=== PATIENT | male | born 1960 | race Caucasian/White ===

== ENCOUNTER 2016-11-04 22:20 | Emergency (ER) ==
[2016-11-04 22:41] LABS: URINE SOURCE VOIDED
[2016-11-04] MEDS ORDERED: MORPHINE IV ONE (22:42)
[2016-11-04] MEDS ORDERED: ZOFRAN IV ONE (22:42)
--- NOTE | 2016-11-04 22:57 | PROVIDER DOCUMENTATION ---
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 States it comes and goes, but is sharp raidating to the RLQ. Denies nausea, vomiting or diarrhea. States he tried dulcolax which actually made the pain worse. States an episode of dysuria just now with darkening of the urine, but no gross hematuria. Review of Systems - Adult - REVIEW OF SYSTEMS - ADULT Constitutional: reports: no symptoms reported. denies: chills, fever, [place]ique Eyes: reports: no symptoms reported. denies: blurred vision, double vision, eye pain Ears, Nose, Mouth & Throat: reports: no symptoms reported. denies: ear pain, nose pain, throat pain Cardiovascular: reports: no symptoms reported. denies: chest pain, palpitations Respiratory: reports: no symptoms reported. denies: cough, shortness of breath Gastrointestinal: reports: no symptoms reported. denies: abdominal pain, diarrhea, nausea, vomiting Genitourinary: reports: see HPI, dysuria, flank pain. denies: discharge, frequency, hematuria, incontinence, urgency Musculoskeletal: reports: no symptoms reported. denies: muscle aches Integumentary: reports: no symptoms reported. denies: rash Neurological: reports: no symptoms reported Psychiatric: reports: no symptoms reported Endocrine: reports: no symptoms reported Hematologic/Lymphatic: reports: no symptoms reported Allergic/Immunologic: reports: no symptoms reported All Other Systems: Reviewed and Negative Past History - Adult - PAST MEDICAL HISTORY-ADULT Review of Records: reports: Old Records Reviewed, Nursing Assessment Review, Medications Reviewed, Social history reviewed & non-contributory. Major Childhood Illnesses: reports: denies history Cardiovascular: reports: denies history Respiratory: reports: denies history Gastrointestinal: reports: denies history Genitourinary: reports: denies history Musculoskeletal: reports: denies history Neurological: reports: denies history Endocrine/Immune: reports: denies history Other Conditions: reports: denies history - PRIOR SURGERIES/PROCEDURES Surgical/Procedure History: reports: reviewed, not pertinent - IMMUNIZATION STATUS Childhood Immunizations: See Nurse Assessment Flu Vaccine: See Nurse Assessment - FAMILY HISTORY Family History: reviewed, not pertinent - SOCIAL HISTORY Smoking: denies Substance Use: none/never Alcohol Use Frequency: never Physical Exam-General - PHYSICAL EXAM-ADULT Initial Vital Signs Reviewed: Yes - CONSTITUTIONAL General Appearance: appears well, alert, no apparent distress - EYES Eyes: PERRL/EOMI, pink conjunctivae - HEAD, EARS, NOSE, MOUTH & THROAT HENMT: normocephalic/atraumatic, moist mucous membranes - NECK Neck: non-tender, full range of motion, supple, normal inspection. negative: lymphadenopathy - RESPIRATORY Respiratory: chest non-tender, lungs clear, normal breath sounds, no pleuratic chest pain, no respiratory distress, no accessory muscle use. negative: respiratory distress, decreased breath sounds, accessory muscle use, crackles, rales, rhonchi, wheezing - CARDIOVASCULAR Cardiovascular: normal peripheral pulses, regular rate, rhythm, no edema - GASTROINTESTINAL (ABDOMEN) Abdominal Exam: normal bowel sounds, non tender, soft, no organomegaly, no pulsatile mass. negative: abdominal bruit, abnormal bowel sounds, distended, guarding, rigid, rebound, tenderness - LYMPHATIC Lymphatic: no adenopathy - MUSCULOSKELETAL Back Exam: normal inspection, no CVA tenderness. negative: CVA tenderness Extremity: normal gait - SKIN Integumentary: normal color, normal turgor, warm/dry - NEUROLOGIC Neurologic: grossly normal, no motor/sensory deficits - PSYCHIATRIC Psych/Mental Status: normal mood/affect, normal thought content, normal thought process, oriented x 3 Progress - PLAN OF CARE/RESULTS Progress/Plan/Lab Results: Vital Signs Temp Pulse Resp BP Pulse Ox 11/04/16 22:29 98.2 F 67 18 136/74 100 celecoxib [From Celebrex] Allergy (Verified 11/04/16 22:33) HIVES NSAIDS (Non-Steroidal Anti-Inflamma Allergy (Verified 11/04/16 22:34) HIVES No Home Medications 11/04/16 Laboratory 11/04/16 22:34 Urine Source VOIDED Urine Color YELLOW Urine Clarity CLEAR Urine pH 6.5 Ur Specific [place] 1.015 Urine Protein TRACE A Urine Ketones NEGATIVE Urine Blood NEGATIVE Urine Nitrite NEGATIVE Urine Bilirubin NEGATIVE Urine Urobilinogen NORMAL Urine WBC NEGATIVE Urine Glucose NEGATIVE Orders Category Date Time Status Saline Loc NOW Care 11/04/16 22:42 Active RENAL STONE SEARCH [CT] Stat Exams 11/04/16 22:[address] W/POSS RFLX CULT [URINALYSIS] Stat Lab 11/04/16 22:34 Results Morphine Med 11/04/16 22:42 Discontinued 4 mg IV NOW ONE Ondansetron [Zofran] Med 11/04/16 22:42 Discontinued 4 mg IV NOW ONE - CT/MRI 1 CT Study: Renal Stone Impression: Abnormal (mild right hydronephrosis secondary to obstructing calculus in the right proximal ureter. There is right nephrolithiasis. No other acute abnormality. stone 7 mm x 5 mm per prelim radiology group.) Departure - Departure Time of Disposition Order: 23:15 DIAGNOSIS: Ureteral stone Disposition: HOME 01 Certified Medical Emergency: Emergent Condition: Stable Additional Instructions: Please follow up with Dr. Moise, urology ED Follow Up Instructions: You have been treated by a care provider in the Emergency Department. These instructions are being provided to you so you can have an understanding of how to care for yourself upon discharge. Upon discharge from the Emergency Department, you are responsible for making arrangements for follow-up care by a physician of your choice. Take all prescribed medications as directed. Return to the Emergency Department immediately for any new or worsening symptoms. You may call the Physician Referral phone number at [phone] to obtain a list of Physicians who are taking new patients. Prescriptions: Tamsulosin [Flomax] 0.4 mg PO DAILY #20 capsule Hydrocodone/APAP 7.5 mg/325 mg [[place]-7.5] 1 each PO Q6H PRN PRN #20 tablet PRN Reason: Pain Ondansetron Odt [Zofran 8Mg Odt] 8 mg PO Q8H PRN PRN #20 tablet PRN Reason: Nausea Referrals: None,PCP [Primary Care Provider] - Attestation - Physician/ Mid-level Attestation Patient care was provided by Mid-level provider (BUSINESS QUALITY ASSURANCE ANALYST/PA):: Yes Mid-level provider:: Shraddha Francois Mid-level documentation review:: The Mid-level provider documentation, treatment plan and medical decision making was reviewed by the physician who agrees with all treatment and medical decision making by the MLP.
[2016-11-04 23:06] LABS: BILIRUBIN URINE NEGATIVE (NEGATIVE); BLOOD URINE NEGATIVE (NEGATIVE); CLARITY CLEAR (CLEAR); COLOR YELLOW; GLUCOSE URINE NEGATIVE (NEGATIVE); LEUKOCYTES URINE NEGATIVE (NEGATIVE); NITRITE URINE NEGATIVE (NEGATIVE); PH URINE 6.5; PROTEIN URINE TRACE mg/dL (NEGATIVE); SP GRAVITY URINE 1.015; UROBILINOGEN URINE NORMAL
[2016-11-04 23:18] LABS: URINE CAST GRANULAR PRESENT /LPF; URINE CULTURE PL NEEDED? YES; URINE EPITHELIAL CELLS <10 /HPF (<10); URINE WBC <10 /HPF (<10)
[2016-11-05] MEDS ORDERED: NORCO-10 PO ONE (00:01)
[2016-11-05] MEDS ORDERED: MORPHINE IM ONE (00:07)
[2016-11-05] MEDS ORDERED: MORPHINE ONE (00:08)
[2016-11-05] MEDS ORDERED: DILAUDID IM ONE (00:48)
[2016-11-05] MEDS ORDERED: DILAUDID ONE (00:50)
[2016-11-05 01:27] VITALS: BP 116/079
--- NOTE | 2016-11-05 10:28 | Diag Imaging Result Document ---
PROCEDURE NAME: RENAL STONE SEARCH - 11/04/2016 CT ABDOMEN AND PELVIS WITHOUT CONTRAST: COMPARISON: None available. FINDINGS: There is an obstructing stone in the proximal right ureter just distal to the right UPJ measuring approximately 8.4 mm. There is associated moderate right hydronephrosis. There is perinephric stranding on the right indicating obstructive uropathy. No other renal or ureteral stones are identified. There is a cyst density lesion at the posterior aspect of the right kidney. There is evidence of prior appendectomy. The remainder of the solid viscera of the abdomen and pelvis and the remainder of the GI tract is essentially unremarkable. IMPRESSION: 8.4 mm obstructing stone in the proximal right ureter with associated moderate right hydronephrosis.
== END 2016-11-05 01:00 | disposition home or self-care (01) ==
LOC: P.ED 22:20
DX: N13.2 Hydronephrosis with renal and ureteral calculous obstruction (principal); R30.0 Dysuria; R10.9 Unspecified abdominal pain; Z79.899 Other long term (current) drug therapy
CPT/HCPCS: 74176; 81001; 87088; 96372; 96374; 96375; 96376; J1170; J2270; J2405

== ENCOUNTER 2016-11-05 14:31 | Inpatient (IN) ==
[2016-11-05] MEDS ORDERED: NS 1,000 ML IV ONE (16:13)
[2016-11-05] MEDS ORDERED: DILAUDID IV ONE (16:13)
[2016-11-05] MEDS ORDERED: ZOFRAN IV ONE (16:13)
[2016-11-05] MEDS ORDERED: ROCEPHIN 1 GM/NS 50 ML IV ONE (16:29)
--- NOTE | 2016-11-05 16:30 | PROVIDER DOCUMENTATION ---
HPI-Male Problem - General Source: patient, family <Teresa Henriquez - Last Filed: 11/05/16 16:29> - General Source: patient - History of Present Illness-Male Location of Complaint: reports: right flank Radiation: reports: generalized flank Quality of Pain: reports: sharp Severity in ED: reports: severe Onset/Duration: reports: last night Timing: reports: still present, getting worse Context/Activities at Onset: reports: none Urinary Symptoms: reports: dysuria, low back pain Associated Symptoms: reports: denies symptoms, nausea, vomiting. denies: dizziness, fatigue, malaise, syncope Similar Symptoms Previously?: Yes Recently seen or treated by another doctor?: Yes <Beka Leger - Last Filed: 11/05/16 17:54> - General Chief Complaint: Return/Recheck Stated Complaint: KIDNEY STONE Time Seen by Provider: 11/05/16 16:13 Allergies/Adverse Reactions: Patient Allergies Allergy/AdvReac Type Severity Reaction Status Date / Time celecoxib [From Celebrex] Allergy HIVES Verified 11/04/16 22:33 NSAIDS (Non-Steroidal Allergy HIVES Verified 11/04/16 22:34 Anti-Inflamma - History of Present Illness-Male Nature of Presenting Problem: Pt (Teresa Henriquez) Pt was seen here last night for the same. Was discharged with a 8.4mm R proximal ureter and moderate R hydro, and was instructed to f/u with Urology next Monday, but his pain was out off control and he could not eat and could not keep anything down. (Beka Leger) Review of Systems - Adult - REVIEW OF SYSTEMS - ADULT Constitutional: reports: no symptoms reported Eyes: reports: no symptoms reported Ears, Nose, Mouth & Throat: reports: no symptoms reported Cardiovascular: reports: no symptoms reported Respiratory: reports: no symptoms reported Gastrointestinal: reports: see HPI, abdominal pain, nausea, vomiting Genitourinary: reports: see HPI, dysuria, frequency, flank pain. denies: discharge Musculoskeletal: reports: no symptoms reported Integumentary: reports: no symptoms reported Neurological: reports: no symptoms reported <Beka Leger - Last Filed: 11/05/16 17:54> Past History - Adult - PAST MEDICAL HISTORY-ADULT Major Childhood Illnesses: reports: denies history Cardiovascular: reports: denies history Respiratory: reports: denies history Gastrointestinal: reports: denies history Genitourinary: reports: denies history Musculoskeletal: reports: denies history Neurological: reports: denies history Endocrine/Immune: reports: denies history Other Conditions: reports: denies history - PRIOR SURGERIES/PROCEDURES Surgical/Procedure History: reports: reviewed, not pertinent - IMMUNIZATION STATUS Childhood Immunizations: See Nurse Assessment Flu Vaccine: See Nurse Assessment - FAMILY HISTORY Family History: reviewed, not pertinent <Teresa Henriquez - Last Filed: 11/05/16 16:29> Physical Exam-General - PHYSICAL EXAM-ADULT Initial Vital Signs Reviewed: Yes - CONSTITUTIONAL General Appearance: alert, moderate distress - EYES Eyes: PERRL/EOMI, pink conjunctivae - HEAD, EARS, NOSE, MOUTH & THROAT HENMT: normocephalic/atraumatic, moist mucous membranes, normal ENT inspection - NECK Neck: non-tender, full range of motion, supple - RESPIRATORY Respiratory: chest non-tender, lungs clear, normal breath sounds, no pleuratic chest pain, no respiratory distress - CARDIOVASCULAR Cardiovascular: normal peripheral pulses, regular rate, rhythm, no edema - GASTROINTESTINAL (ABDOMEN) Abdominal Exam: normal bowel sounds, non tender, soft, tenderness (Diffused R flank and abd tenderness, no guarding and no revound.) - LYMPHATIC Lymphatic: no adenopathy - MUSCULOSKELETAL Back Exam: normal inspection Extremity: normal range of motion, non-tender, normal gait - SKIN Integumentary: normal color, normal turgor, warm/dry - NEUROLOGIC Neurologic: no motor/sensory deficits, abnormal cerebellar tests, abnormal gait - PSYCHIATRIC Psych/Mental Status: normal mood/affect, normal thought content, normal thought process, oriented x 3 <Beka Leger X - Last Filed: 11/05/16 17:54> Progress <Teresa Henriquez - Last Filed: 11/05/16 16:29> - CONSULTS/PCP/HOSPITALIST Notification Time Discussed: 17:46 Reason/Comments: Admit to Dr. Padilla Consult Disposition: Admit <Beka Leger X - Last Filed: 11/05/16 17:54> - PLAN OF CARE/RESULTS Progress/Plan/Lab Results: Orders Category Date Time Status Saline Loc DIRECTED Care 11/05/16 16:13 Active NPO Diet 11/05/16 16:13 Active AMYLASE [CHEM] Stat Lab 11/05/16 17:14 Received CBC WITH ELECTRONIC DIFF [HEME] Stat Lab 11/05/16 17:14 Completed COMPREHENSIVE METABOLIC PANEL [CHEM] Stat Lab 11/05/16 17:14 Received LIPASE [CHEM] Stat Lab 11/05/16 17:14 Received URINALYSIS W/POSS RFLX CULT [URINALYSIS] Stat Lab 11/05/16 16:13 Uncollected 0.9% Sodium Chloride Inj [Ns] 1,000 ml Med 11/05/16 17:30 Discontinued IV 125 mls/hr 0.9% Sodium Chloride Inj [Ns] 1,000 ml Med 11/05/16 18:00 Active IV 125 mls/hr 0.9% Sodium Chloride Inj [Ns] 1,000 ml Med 11/05/16 16:13 Discontinued IV 999 mls/hr CefTRIAXONE 1 GM/NS [Rocephin 1 gm/Ns] 50 ml Med 11/05/16 16:29 Discontinued IV NOW Hydromorphone [Dilaudid] Med 11/05/16 17:22 Active 0.5 mg IV Q3H PRN PRN Hydromorphone [Dilaudid] Med 11/05/16 16:13 Discontinued 1 mg IV NOW ONE Ondansetron [Zofran] Med 11/05/16 17:22 Active 4 mg IV Q4-6H PRN PRN Ondansetron [Zofran] Med 11/05/16 16:13 Discontinued 8 mg IV NOW ONE Tamsulosin [Flomax] Med 11/05/16 21:00 Active 0.4 mg PO QHS Tamsulosin [Flomax] Med 11/05/16 21:00 Discontinued 0.4 mg PO QHS Transfer/Admit Order [TRANSFER] Routine Transfer 11/05/16 17:24 Ordered Vital Signs Temp Pulse Resp BP Pulse Ox 11/05/16 15:01 98.5 F 71 18 124/68 98 celecoxib [From Celebrex] Allergy (Verified 11/04/16 22:33) HIVES NSAIDS (Non-Steroidal Anti-Inflamma Allergy (Verified 11/04/16 22:34) HIVES Hydrocodone/APAP 7.5 mg/325 mg [[place]-7.5] 1 each PO Q6H PRN PRN #20 tablet 04/15 Ondansetron Odt [Zofran 8Mg Odt] 8 mg PO Q8H PRN PRN #20 tablet 11/04/16 Tamsulosin [Flomax] 0.4 mg PO DAILY #20 capsule 11/04/16 Dietary Diet NPO Start Sat Nov 05 161 Laboratory 11/05/16 17:14 WBC 14.21 H RBC 4.91 Hgb 15.1 Hct 43.5 MCV 88.6 MCH 30.8 MCHC 34.7 RDW Std Deviation 11.9 Plt Count 214 MPV 11.3 H Immature Gran % (Auto) 0.1 Neut % (Auto) 84.2 H Lymph % (Auto) 6.1 L [place] % (Auto) 9.4 H Eos % (Auto) 0.1 Baso % (Auto) 0.1 Immature Gran # (Auto) 0.02 Neut # (Auto) 11.94 H Lymph # (Auto) 0.87 L [place] # (Auto) 1.34 H Eos # (Auto) 0.02 Baso # (Auto) 0.02 Orders Category Date Time Status Saline Loc DIRECTED Care 11/05/16 16:13 Active NPO Diet 11/05/16 16:13 Active AMYLASE [CHEM] Stat Lab 11/05/16 17:14 Received CBC WITH ELECTRONIC DIFF [HEME] Stat Lab 11/05/16 17:14 Completed COMPREHENSIVE METABOLIC PANEL [CHEM] Stat Lab 11/05/16 17:14 Received LIPASE [CHEM] Stat Lab 11/05/16 17:14 Received URINALYSIS W/POSS RFLX CULT [URINALYSIS] Stat Lab 11/05/16 16:13 Uncollected 0.9% Sodium Chloride Inj [Ns] 1,000 ml Med 11/05/16 17:30 Discontinued IV 125 mls/hr 0.9% Sodium Chloride Inj [Ns] 1,000 ml Med 11/05/16 18:00 Active IV 125 mls/hr 0.9% Sodium Chloride Inj [Ns] 1,000 ml Med 11/05/16 16:13 Discontinued IV 999 mls/hr CefTRIAXONE 1 GM/NS [Rocephin 1 gm/Ns] 50 ml Med 11/05/16 16:29 Discontinued IV NOW Hydromorphone [Dilaudid] Med 11/05/16 17:22 Active 0.5 mg IV Q3H PRN PRN Hydromorphone [Dilaudid] Med 11/05/16 16:13 Discontinued 1 mg IV NOW ONE Ondansetron [Zofran] Med 11/05/16 17:22 Active 4 mg IV Q4-6H PRN PRN Ondansetron [Zofran] Med 11/05/16 16:13 Discontinued 8 mg IV NOW ONE Tamsulosin [Flomax] Med 11/05/16 21:00 Active 0.4 mg PO QHS Tamsulosin [Flomax] Med 11/05/16 21:00 Discontinued 0.4 mg PO QHS Transfer/Admit Order [TRANSFER] Routine Transfer 11/05/16 17:24 Ordered (Beka Leger) Departure <Teresa Henriquez - Last Filed: 11/05/16 16:29> - Departure Time of Disposition Order: 17:46 Certified Medical Emergency: Emergent <Beka Leger - Last Filed: 11/05/16 17:54> - Departure DIAGNOSIS: Ureteral stone Hydronephrosis Qualifiers: Hydronephrosis type: with renal calculous obstruction Qualified Code(s): N13.2 - Hydronephrosis with renal and ureteral calculous obstruction Disposition: ADMITTED INPATIENT 09 Condition: Stable Physician Attestation
[2016-11-05 17:20] LABS: MANUAL DIFF NEEDED? NO
[2016-11-05] MEDS ORDERED: ZOFRAN IV PRN (17:22)
[2016-11-05 17:26] LABS: BASO% 0.1 % (0.0-0.8); EOS# 0.02 X1000 (0.0-0.7); EOS% 0.1 % (0.0-10.0); HEMATOCRIT 43.5 % (42.0-52.0); HEMOGLOBIN 15.1 g/dL (14.0-18.0); IMM GRAN# 0.02 X1000 (0.0-0.04); IMM GRAN% 0.1 % (0.0-0.5); LYMPH# 0.87 X1000 (1.2-3.4); LYMPH% 6.1 % (20.5-51.1); MCH 30.8 PG (27-31); MCHC 34.7 g/dL (33-37); MCV 88.6 FL (81-99); MONO# 1.34 X1000 (0.11-0.59); MONO% 9.4 % (1.7-9.3); MPV 11.3 FL (7.4-10.4); NEUT% 84.2 % (42.2-75.2); PLT 214 X1000 (130-400); RBC 4.91 XMIL (4.7-6.1)
[2016-11-05] MEDS ORDERED: NS 1,000 ML IV SCH (17:30)
[2016-11-05 17:51] LABS: ALBUMIN 4.6 g/dL (3.5-5.0); CALCIUM 9.5 mg/dL (8.8-10.2); POTASSIUM 3.9 mmol/L (3.5-5.1); TOTAL BILIRUBIN 3.72 mg/dL (0.20-1.00)
[2016-11-05] MEDS: FLOMAX PO SCH (20:52)
[2016-11-05] MEDS: DILAUDID IV PRN (20:53)
[2016-11-05] MEDS: NS 1,000 ML IV SCH (20:54)
[2016-11-05] MEDS ORDERED: FLOMAX PO SCH (21:00)
--- NOTE | 2016-11-05 21:42 | HISTORY AND PHYSICAL ---
CHIEF COMPLAINT: Abdominal flank pain. HISTORY OF PRESENT ILLNESS: This 56-year-old white male was seen on the previous day in the emergency room with flank pain. He had hematuria and CT scan revealed a 7+ cm stone in the proximal right ureter with associated moderate right hydronephrosis. The patient was sent home with pain medications, Flomax and nausea medicine. Unfortunately over the course of the following day, the patient had multiple episodes of vomiting. He had worsening abdominal pain and was simply unable to tolerate the attempt at passively eliminating this kidney stone. He is admitted for more definitive treatment. ALLERGIES: CELEBREX, NONSTEROIDAL ANTI-INFLAMMATORY DRUGS WHICH CAUSE HIVES. MEDICATIONS: None. PAST MEDICAL HISTORY: Essentially none. History of prior surgeries, immunization status and family history were not reviewed. SOCIAL HISTORY: The patient is a nonsmoker, nonuser of any type of controlled substances. He does drink beer but rarely more than 1 6-pack over the course of a week. REVIEW OF SYSTEMS: The patient has been able to have urine output. He continues to have flank and right abdominal pain mainly radiating into the right lower quadrant. He has had multiple episodes of nausea, vomiting. He denies any shortness of breath, cough or wheezing. There have been no mental status changes. He had difficulty holding down his pain medications. PHYSICAL EXAMINATION: GENERAL: He is a well-developed, well-nourished, white male, who looks moderately uncomfortable despite being treated with pain medications in the ER. NECK EXAM: Unremarkable. ENT: Unremarkable. LUNGS: Clear to auscultation bilaterally. CARDIOVASCULAR: Regular rhythm without appreciable murmur or gallop. ABDOMEN: Shows bowel sounds are present. He has very mild diffuse tenderness without rebound. He is not particularly tender in the right lower quadrant where the stone likely exists. EXTREMITIES: No peripheral edema. Normal pulses. NEUROLOGIC: Cranial nerves are intact. There are no motor deficits. PSYCHOLOGIC: He is alert, oriented, conversive and appropriate. LABORATORIES: The patient's white cell count was 14.2, hematocrit 43.5. Patient's creatinine was 1.7. Compared to any previous measurements this was increased from a baseline of 1.0. Repeat urinalysis was not undertaken. The urine from 11/04 showed granular casts present, no evidence of infection and 2+ bacteria. ASSESSMENT AND PLAN: 1. The patient is admitted to the hospital for IV fluids, pain control and nausea control. We will continue his Flomax and I plan to consult Dr. Rivera in the morning to see whether this would be most amenable to lithotripsy or basket catch. 2. I plan to institute antibiotics due to the bacteria present and the elevation in white cell count. Some of this may be due to hemoconcentration from dehydration caused by nausea and vomiting. We will recheck this in the morning as well as his creatinine level.
[2016-11-05 21:53] LABS: URINE CULTURE NEEDED? NO; URINE MICRO REVIEW NEEDED? NO; URINE SOURCE CLEAN CATCH
[2016-11-05 22:02] LABS: BILIRUBIN URINE NEGATIVE (NEGATIVE); BLOOD URINE NEGATIVE (NEGATIVE); COLOR YELLOW; GLUCOSE URINE NEGATIVE (NEGATIVE); LEUKOCYTES URINE NEGATIVE (NEGATIVE); NITRITE URINE NEGATIVE (NEGATIVE); PH URINE 5.5; PROTEIN URINE TRACE mg/dL (NEGATIVE); SP GRAVITY URINE 1.026; TURBIDITY URINE CLEAR (CLEAR); UROBILINOGEN URINE NORMAL (NORMAL)
[2016-11-05 22:03] LABS: UR EPITHELIAL CELLS <10 /HPF (<10); URINE BACTERIA NEGATIVE /HPF; URINE RBC <10 /HPF (<10); URINE WBC <10 /HPF (<10)
[2016-11-06] MEDS: DILAUDID IV PRN ×6 (00:18→15:22)
[2016-11-06] MEDS: NS 1,000 ML IV SCH ×3 (03:31→19:41)
[2016-11-06 11:08] LABS: HEMATOCRIT 36.3 % (42.0-52.0); HEMOGLOBIN 12.3 g/dL (14.0-18.0); MCH 30.4 PG (27-31); MCHC 33.9 g/dL (33-37); MCV 89.6 FL (81-99); RBC 4.05 XMIL (4.7-6.1)
[2016-11-06 11:21] LABS: POTASSIUM 3.7 mmol/L (3.5-5.1)
[2016-11-06 11:29] LABS: CALCIUM 7.7 mg/dL (8.8-10.2)
--- NOTE | 2016-11-06 12:22 | PROGRESS NOTE ---
DATE: 11/06/2016 SUBJECTIVE: Mr. Reeder was admitted to [facility] with a 7 mm stone in the proximal right ureter with associated moderate right hydronephrosis. His baseline creatinine is 1.0. His creatinine was 1.7 on admission. He continues with persistent right flank pain and gross hematuria. He is requiring Dilaudid every 3 hours. He has been unable to pass the stone. OBJECTIVE: Vital signs: Temperature 99.4 degrees, pulse 81, respirations 18, BP 112/62. CV: Regular rate and rhythm. Lungs: Clear. Abdomen: Soft, nontender, with active bowel sounds. Back: Right CVA tenderness. ASSESSMENT AND PLAN: Right ureteral stone with obstruction and right hydronephrosis associated with acute renal failure. His baseline creatinine is 1.0. His creatinine was 1.7 on admission. I have drawn a BMP this morning to reassess his renal function. Given the hydronephrosis and the size of the stone, I do not believe that he will be able to pass the stone. I am going to call Dr. Rivera to see him today as I anticipate he will need surgical intervention to retrieve the stone.
[2016-11-06] MEDS ORDERED: DILAUDID IV ONE (15:14)
[2016-11-06] MEDS ORDERED: KEFZOL 1 GM/D5W 50 ML ONE (16:02)
[2016-11-06] MEDS ORDERED: CLAVE SECONDARY SET 11953 ONE (16:02)
--- NOTE | 2016-11-06 16:07 | CONSULTATION ---
DATE OF CONSULTATION: 11/06/2016 REFERRING PHYSICIAN: Mala Chavez MD. REASON FOR CONSULTATION: 7 mm right proximal ureteral stone. HISTORY OF PRESENT ILLNESS: A 56-year-old male without previous history of urolithiasis who presented on 11/04/2016 with severe right flank pain. He underwent imaging with CT scan which revealed 8 mm right proximal ureteral stone with moderate hydronephrosis. At that time he was discharged home with pain medications but re-presented the next day with worsening pain which was only responsive to IV Dilaudid. He denies significant vomiting, gross hematuria, fever or chills. He is currently admitted with IV fluids, IV Dilaudid, and creatinine of 1.8 with his baseline of being 1. PAST MEDICAL HISTORY: None. PAST SURGICAL HISTORY: Appendectomy. HOME MEDICATIONS: None. ALLERGIES: NSAIDs. SOCIAL HISTORY: Denies smoking. Rare alcohol. No illicit drugs. FAMILY HISTORY: No malignancies. REVIEW OF SYSTEMS: Reviewed in 12 systems and is negative with exception to the HPI. PHYSICAL EXAMINATION: Vital Signs: T 99.4 degrees, P 71, BP 112/62. General: No acute distress. HEENT: Normocephalic, atraumatic. Cardiovascular: Regular rate and rhythm. Pulmonary: Bilateral breath sounds. Abdomen: Tender, distended. Genitourinary: Bladder is nontender to palpation. LYMPHATICS: No groin lymphadenopathy. Dermatologic: No obvious skin rashes. Neurologic: Alert and oriented x3. Psychiatric: Appropriate mood and affect. PERTINENT LABORATORY DATA: White cell count of 12,000, hematocrit 36. Creatinine of 1.8. Urinalysis positive for protein and negative for blood or bacteria. PERTINENT IMAGES: CT abdomen and pelvis renal stone search on 11/04/2016 with an 8 mm right proximal ureteral stone with hydroureteronephrosis. ASSESSMENT: A 56-year-old male with an 8 mm right proximal ureteral stone, hydronephrosis, a rising creatinine, and pretty severe pain that is partially controlled with IV Dilaudid. I have discussed with the patient his treatment options which would be either cystoscopy and ureteral stent placement followed by extracorporeal shockwave lithotripsy and stent removal in the near future versus right ureteroscopy with laser lithotripsy, stone basket extraction, and stent placement. We have discussed the benefits and risks of each procedure. He would like to proceed with the former. The risks of cystoscopy and stent placement include but not limited to, bleeding, infection, injury to the bladder, injury to the ureter, need for additional interventions were explained. He voiced understanding and wished to proceed. PLAN: 1. Agree with IV pain medications. 2. To the operating room today for cystoscopy and right ureteral stent placement. Thank you for consultation.
[2016-11-06] MEDS ORDERED: DIPRIVAN 1% ONE (16:36)
--- NOTE | 2016-11-06 17:00 | CONSULTATION ---
DATE OF CONSULTATION: 11/06/2016 HISTORY OF PRESENT ILLNESS: The patient is seen on this date 11/06/2016. Apparently. The patient has been in a great deal of discomfort. His called me yesterday, apparently they had been in the emergency room earlier in the night with acute flank pain, nausea and vomiting. The patient was not hydrated, went home and simply was not doing well. Still throwing up. She gave me a call. I suggested that probably should have to go the emergency room and if they needed me they would call me so she went back emergency room and was admitted to the hospital. The patient is 56 years of age. He has had some hematuria, CT reveals an 8 mm stone right proximal ureter with moderate hydro on the CT. No benefit from Flomax and patient is unable to take nonsteroidals for pain control. So, he is admitted for comfort means and to eventually deal with the stone. ALLERGIES: Celebrex and all nonsteroidal anti inflammatory medications which apparently cause hives. MEDICATIONS: He is on no home medications. PAST MEDICAL HISTORY: Kidney stones. Otherwise, none. PAST SURGICAL HISTORY: Apparently none. SOCIAL HISTORY: He is a nonsmoker. No illicit drugs. Occasional of beer maybe one pack over the course of a week. REVIEW OF SYSTEMS: HEENT: Head and neck negative. Cardiac: Negative. Constitutional: See above. Pulmonary: Negative. Gastrointestinal: Negative. No history of GI issues. Genitourinary: See history of present illness. Musculoskeletal: Negative. Hematologic: Negative. Renal: He has got a little bump in his creatinine but in my opinion he probably came in dehydrated and, of course, with some at least partial obstruction of the right kidney. Neurologic: Negative. He is sedate at this time because of the fair amount of Dilaudid being provided for pain control. DIAGNOSTIC DATA: A CT scan was reviewed. An 8 mm stone noted, proximal ureter. It is unclear that it will stay there for laser lithotripsy, but I think we will try and the and patient agree on the matter. The white count is slightly elevated. I think that is an acute pain issue. He has remained afebrile. They did provide antibiotics regardless. PHYSICAL EXAMINATION: Vital Signs: Temperature max 99.4. Blood pressure is completely stable home 112/62. He did come in a little bit dehydrated. His urinalysis concentrated some at 1.026 on admission as I understand it. Cultures were obtained before the patient was covered with a broad-spectrum antibiotic. His output has been nominal consistent with his nausea and vomiting and hydration is more than sufficient by the attending physician. HEENT/Neck: He has no head or neck lumps or masses. Lungs: Clear. Cardiovascular: Heart had a regular rate and rhythm. I heard no murmurs. Abdomen: He has right flank and abdominal pain consistent with stone disease and partial obstruction of the right kidney. Genitourinary: External genitalia without hernia. Testicles and epididymis were normal. Descended bilaterally. Penis without lesions. Adequate meatus. Rectal: Not done. Extremities: Moves his upper and lower extremities well. Neurologic: He is sedated at this time. IMPRESSIONS: 1. He has a large right ureteral calculus. 2. He has hydronephrosis. 3. He has flank pain. PLAN: I will try to get hold of the nursing electric repair supervisor and plan for cystoscopy, ureteroscopy with possible laser lithotripsy, depending upon being able to trap that stone and hold it steady. If the stone migrates back into the kidney, we will simply plan an ESWL later in a week. We will try to take care of it tomorrow if we can. He will obviously get a stent which will need to be removed within 1 week. Having said that, they agree to the intervention as planned. We will keep him NPO after midnight. Plan as described above.
[2016-11-06] MEDS ORDERED: DITROPAN PO PRN (17:17)
--- NOTE | 2016-11-06 19:32 | OPERATIVE NOTE ---
PROCEDURE DATE: 11/06/2016 PREOPERATIVE DIAGNOSIS: 1. 8 mm right ureteropelvic junction stone. 2. Flank pain. 3. Hydronephrosis. PRIMARY PROCEDURES: Cystoscopy. Placement of 6-Honduran-24 cm ureteral stent. INDICATIONS: A 56-year-old male who presented with severe right flank pain radiating to the abdomen. He was noted to have obstructing 8 mm stone. His creatinine increased. His pain was partially controlled with IV Dilaudid. He desires intervention. FINDINGS: Successful advancement of the stone back into the kidney with adequate stent placement. No blood loss. DETAILS OF OPERATION: After obtaining informed consent, patient brought to the operative room. Perioperative antibiotics and laryngeal mask anesthesia were administered. He was placed in lithotomy position, prepped and draped in sterile fashion. A 21-Honduran rigid cystoscope was used to gain access to the bladder, which was then examined in a systematic fashion. He had no evidence of mucosal lesions, excessive trabeculations, or diverticula noted. We turned our attention to the right ureteral orifice which was cannulated with a PTFE wire. In a standard fashion, the wire was advanced to the level of the renal pelvis. We then advanced a 6-Honduran, 24 cm stent over the wire via the cystoscope with the proximal coil position confirmed fluoroscopically and distal coil directly visualized. The string was detached from the stent. His bladder was emptied, cystoscope was removed, he was extubated and taken to PACU for further recovery. ESTIMATED BLOOD LOSS: None. COMPLICATIONS: None. DISPOSITION: To PACU, subsequently onto the floor for observation.
[2016-11-07] MEDS: FLOMAX PO SCH (00:40)
[2016-11-07] MEDS: NS 1,000 ML IV SCH ×3 (01:50→05:49)
[2016-11-07] MEDS: PERIDEX MT SCH ×2 (04:48→08:09)
[2016-11-07 06:11] LABS: CALCIUM 8.3 mg/dL (8.8-10.2); POTASSIUM 4.3 mmol/L (3.5-5.1)
[2016-11-07 07:27] VITALS: BP 118/63
--- NOTE | 2016-11-07 08:20 | Diag Imaging Result Document ---
PROCEDURE NAME: FLUROSCOPY CYSTO - 11/06/2016 RETROGRADE PYELOGRAM, FOUR IMAGES: FINDINGS: There is an apparent stone in the right collecting system. A stent was placed by Dr. Leiva. No contrast was administered. IMPRESSION: Right ureteral stent placement.
[2016-11-07] MEDS ORDERED: EXTENSION SET 32 IN 4522 ONE (08:35)
[2016-11-07] MEDS ORDERED: LR 1,000 ML ONE (08:35)
[2016-11-07] MEDS ORDERED: DECADRON ONE (08:35)
[2016-11-07] MEDS ORDERED: ZOFRAN ONE (08:35)
[2016-11-07] MEDS ORDERED: ANESTHESIA PB SET 88 IN 5742 ONE (08:35)
--- NOTE | 2016-11-07 09:01 | DISCHARGE SUMMARY ---
ADMISSION DATE: 11/05/2016 DISCHARGE DATE: 11/07/2016 DISCHARGE DIAGNOSES: 1. Proximal right ureteral stone of approximately 7 mm with associated moderate right hydronephrosis. 2. Gross hematuria secondary to ureteral stone. 3. Acute renal failure secondary to proximal right ureteral stone with moderate right-sided hydronephrosis. DISCHARGE INSTRUCTIONS: 1. The patient will be discharged to home. He will undergo lithotripsy on 11/10/[address] Leiva. 2. Activity as tolerated. 3. Regular diet. DISCHARGE MEDICATIONS: Flomax 0.4 mg daily, oxybutynin 5 mg p.o. t.i.d. p.r.n. bladder spasms, Hunt 10 1 q.6 hours p.r.n. pain. PHYSICAL EXAMINATION: General: This is a well-developed, well-nourished, 56-year-old gentleman in no apparent distress. He is afebrile. Vital signs: Stable. CV: Regular rate and rhythm. Lungs: Clear. Abdomen: Soft, nontender, with active bowel sounds. HISTORY AND HOSPITAL COURSE: Mr. Raymundo Reeder was admitted to [facility]. Mr. Raymundo Reeder presented to the ER at [facility] on 11/04/2016 with right flank pain and gross hematuria. A CT renal stone search demonstrated a proximal right ureteral stone of approximately 7 mm with moderate right-sided hydronephrosis. His baseline creatinine is 1. His creatinine in the ER was 1.7. He was discharged home on oral pain medicines. Because of persistent nausea, worsening pain, and gross hematuria, his brought him back to the ER at the [facility]. Dr. Padilla admitted him to my service. The patient was initially treated with Dilaudid and Phenergan for pain and nausea and vomiting. He was aggressively rehydrated. Antibiotics including Rocephin were initiated pending urinalysis. His urinalysis was unremarkable. His white count trended down from 14,[address] Dr. Leiva saw him in consultation and placed a J J stent. His pain has improved significantly. He is no longer having any nausea or vomiting. His creatinine has dropped from 1.8 to 1.3 the patient is aware that he can have persistent pain and bladder spasms while the stent is in place. He has been scheduled for lithotripsy on 11/10/2016. Having reached maximum hospital benefit, the patient was discharged in stable condition.
== END 2016-11-07 09:27 | disposition home or self-care (01) | DRG 694 ==
LOC: ED 14:31 → SUPCPDRO 14:31 → 4N 18:38
PROVIDERS: ADMIT Internal Medicine; ATTEND Internal Medicine
PROC: 0T768DZ Dilation of Right Ureter with Intraluminal Device, Via Natural or Artificial Opening Endoscopic (ICD-10-PCS; principal; 2016-11-06 16:09)
DX: N13.2 Hydronephrosis with renal and ureteral calculous obstruction (principal); N17.9 Acute kidney failure, unspecified; E86.0 Dehydration
CPT/HCPCS: 76000; 80048; 80053; 81001; 82150; 83690; 85025; 85027; 94799; 96365; 96375; C2617; J0690; J0696; J1100; J1170; J2405; J7030; J7120